=== PATIENT | male | born 1975 | race Caucasian/White ===

== ENCOUNTER 2018-10-10 14:31 | Emergency (ER) | payer OTHER ==
[~2018-10-10] VITALS: Ht 177.8 cm; Wt 87.1 kg
--- NOTE | 2018-10-10 15:00 | NUR ---
PT BIB SELF C/O SEVERE ABD PAIN X3 DAYS, REPORTS "CROH[place] FLARE-UP" WHICH HAPPENS OCCASIONALLY. PT REPORTS HIGH TOLERANCE TO PAIN MEDICATION. DENIES N/V AT THIS TIME. NO OTHER COMPLAINTS. RESP EVEN UNLABORED. IN ER BED 13.
[2018-10-10 15:16] LABS: EOSINOPHILS % (AUTO) 0.8 % (0.0-6.0); HEMATOCRIT 43 % (39-51); HEMOGLOBIN 14.7 g/dL (13.5-17.5); LYMPHOCYTES # (AUTO) 1.6 /CMM (0.8-4.8); LYMPHOCYTES % (AUTO) 35.1 % (20.0-44.0); MEAN CORPUSCULAR HGB CONC 34 g/dl (31.0-36.0); MEAN CORPUSCULAR VOLUME 96 fL (80-96); MONOCYTES # (AUTO) 0.4 /CMM (0.1-1.30); MONOCYTES % (AUTO) 8.7 % (2.0-12.0); NEUTROPHILS # (AUTO) 2.5 /CMM (1.8-8.9); NEUTROPHILS % (AUTO) 54.4 % (43.0-81.0); PLATELET COUNT (AUTO) 253 /CMM (150-450); RED BLOOD CELL COUNT(AUTO) 4.47 MIL/uL (4.5-6.0); WHITE BLOOD COUNT (AUTO) 4.6 K/uL (4.3-11.0)
[2018-10-10] MEDS ORDERED: HYDROMORPHONE 1 MG/1 ML DISP.SYRIN ONE (15:21)
[2018-10-10] MEDS ORDERED: ONDANSETRON HCL/PF 4 MG/2 ML VIAL ONE (15:21)
[2018-10-10 15:23] LABS: CREATININE 0.9 mg/dL (0.6-1.3); POTASSIUM 3.3 mmol/L (3.5-5.1)
[2018-10-10 15:28] LABS: ALBUMIN 3.4 g/dL (3.4-5.0); BILIRUBIN,DIRECT 0.1 mg/dL (0.0-0.2); BILIRUBIN,TOTAL 0.3 mg/dL (0.2-1.0); TOTAL PROTEIN, SERUM 6.6 g/dL (6.4-8.2)
[2018-10-10] MEDS ORDERED: HYDROMORPHONE INJ 2 MG/ML DISP.SYRIN IV ONE (15:30)
[2018-10-10] MEDS ORDERED: ONDANSETRON HCL/PF 4 MG/2 ML VIAL IVP ONE (15:30)
[2018-10-10] MEDS ORDERED: IV NS 0.9% 1,000 ML BAG IV ONE (15:30)
--- NOTE | 2018-10-10 16:10 | NUR ---
RESTING QUIETLY, NAD NOTED. PENDING DC UPON COMPLETION OF FLUIDS.
--- NOTE | 2018-10-10 17:10 | NUR ---
Patient discharged to home in stable condition. Written and verbal after care instructions given. Patient verbalizes understanding of instruction. IV removed. Catheter intact and site benign. Pressure and 4x4 applied to site. No bleeding noted. AMBULATORY STEADY GAIT
[2018-10-10 17:12] VITALS: BP 127/82
== END 2018-10-10 17:12 | disposition home or self-care (01) ==
LOC: ER 14:39
DX: K50.90 Crohn's disease, unspecified, without complications (principal); I10 Essential (primary) hypertension; Z85.038 Personal history of other malignant neoplasm of large intestine
CPT/HCPCS: 36415; 80048-TC; 80076-TC; 83690-TC; 85025-TC; A4606; J1170; J2405; J7030; Z7610

== ENCOUNTER 2019-04-09 19:23 | Emergency (ER) | payer SELFPAY ==
[~2019-04-09] VITALS: Ht 177.8 cm; Wt 90.7 kg
--- NOTE | 2019-04-09 19:40 | NUR ---
PT BIBSELF C/O ALCOHOL WITHDRAWAL. 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 PT AAOX4. RESPIRATIONS EVEN AND UNLABORED. SKIN WARM AND INTACT. VITAL SIGNS STABLE. NO ACUTE DISTRESS NOTED AT THIS TIME. ON CONTINUOUS FOOD AND BEVERAGE ASSOCIATE, WILL CONTINUE TO MONITOR
[2019-04-09] MEDS ORDERED: LORAZEPAM INJ 2 MG/ML VIAL ONE (19:41)
--- NOTE | 2019-04-09 19:50 | NUR ---
IV INITIATED LAC 18G. LABS DRAWN FROM SITE. AGENCY DIRECTOR AT BEDSIDE FOR COLLECTION. IV INTACT AND PATENT
[2019-04-09 19:58] LABS: BASOPHILS # (AUTO) 0.1 /CMM (0.0-0.2); BASOPHILS % (AUTO) 1.5 % (0.0-2.0); EOSINOPHILS % (AUTO) 0.4 % (0.0-6.0); HEMATOCRIT 51 % (39-51); HEMOGLOBIN 17.5 g/dL (13.5-17.5); LYMPHOCYTES # (AUTO) 1.5 /CMM (0.8-4.8); LYMPHOCYTES % (AUTO) 17.6 % (20.0-44.0); MEAN CORPUSCULAR HGB CONC 34 g/dl (31.0-36.0); MEAN CORPUSCULAR VOLUME 95 fL (80-96); MONOCYTES # (AUTO) 0.6 /CMM (0.1-1.30); MONOCYTES % (AUTO) 6.4 % (2.0-12.0); NEUTROPHILS # (AUTO) 6.4 /CMM (1.8-8.9); NEUTROPHILS % (AUTO) 74.1 % (43.0-81.0); PLATELET COUNT (AUTO) 287 /CMM (150-450); RED BLOOD CELL COUNT(AUTO) 5.36 MIL/uL (4.5-6.0); WHITE BLOOD COUNT (AUTO) 8.6 K/uL (4.3-11.0)
[2019-04-09] MEDS ORDERED: LORAZEPAM INJ 2 MG/ML VIAL IVP ONE (20:00)
[2019-04-09] MEDS ORDERED: IV NS 0.9% 1,000 ML BAG IV ONE (20:00)
[2019-04-09 20:01] LABS: CALCIUM, SERUM 8.8 mg/dL (8.5-10.1); CREATININE 1.4 mg/dL (0.6-1.3); POTASSIUM 4.2 mmol/L (3.5-5.1)
[2019-04-09 20:09] LABS: ALBUMIN 4.2 g/dL (3.4-5.0); BILIRUBIN,DIRECT 0.2 mg/dL (0.0-0.2); BILIRUBIN,TOTAL 0.6 mg/dL (0.2-1.0)
[2019-04-09 20:10] LABS: SALICYLATE 1.1 mg/dL (2.8-20.0)
--- NOTE | 2019-04-09 20:10 | NUR ---
UNABLE TO PROVIDE URINE SAMPLE AT THIS TIME.
--- NOTE | 2019-04-09 20:43 | NUR ---
PT STILL UNABLE TO PROVIDE URINE SAMPLE. MD PUENTE
[2019-04-09] MEDS ORDERED: Magnesium 1GM/D5W 100ML PREMIX PIGGYBACK IV ONE (21:00)
[2019-04-09] MEDS ORDERED: Magnesium 1GM/D5W 100ML PREMIX 100 ML IV ONE (21:15)
--- NOTE | 2019-04-10 05:30 | NUR ---
PT OK TO DISCHARGE HOME PER DR ROPER. IV removed. Catheter intact and site benign. Pressure and 4x4 applied to site. No bleeding noted.Patient discharged to home in stable condition. Written and verbal after care instructions given. Patient verbalizes understanding of instruction.Patient is awake and alert to self, day, and place. PT ambulatory with a steady gait. Pt called to take him home.
[2019-04-10 05:53] VITALS: BP 131/92
== END 2019-04-10 05:54 | disposition home or self-care (01) ==
LOC: ER 19:25
DX: F10.20 Alcohol dependence, uncomplicated (principal); E86.0 Dehydration; R00.0 Tachycardia, unspecified; I10 Essential (primary) hypertension; K50.90 Crohn's disease, unspecified, without complications; Y90.8 Blood alcohol level of 240 mg/100 ml or more; Z85.038 Personal history of other malignant neoplasm of large intestine; Z60.2 Problems related to living alone
CPT/HCPCS: 36415; 80048; 80076; 80307; 80329; 85025; 93005; 96361; 96365; 96375; 99284; G0480; J2060; J3475; J7030

== ENCOUNTER 2019-05-05 00:52 | Emergency (ER) | payer OTHER ==
[~2019-05-05] VITALS: Ht 177.8 cm; Wt 94.8 kg
[2019-05-05 01:01] VITALS: BP 124/97
== END 2019-05-05 01:39 | disposition home or self-care (01) ==
LOC: ER 00:57
DX: F10.239 Alcohol dependence with withdrawal, unspecified (principal); Y90.9 Presence of alcohol in blood, level not specified; I10 Essential (primary) hypertension; K50.90 Crohn's disease, unspecified, without complications; Z85.038 Personal history of other malignant neoplasm of large intestine; Z90.89 Acquired absence of other organs; Z98.890 Other specified postprocedural states; Z60.2 Problems related to living alone

== ENCOUNTER 2019-06-03 15:34 | Emergency (ER) | payer OTHER ==
[~2019-06-03] VITALS: Ht 167.6 cm; Wt 79.4 kg
[2019-06-03 15:43] VITALS: BP 154/99
[2019-06-03] MEDS ORDERED: LORAZEPAM 1 MG TABLET PO ONE (16:00)
[2019-06-03] MEDS ORDERED: KETOROLAC TROMETHAMINE INJ 60 MG/2 ML VIAL IM ONE (16:00)
[2019-06-03] MEDS ORDERED: KETOROLAC TROMETHAMINE INJ 30 MG/ML VIAL ONE (16:18)
[2019-06-03] MEDS ORDERED: LORAZEPAM 1 MG TABLET ONE (16:18)
== END 2019-06-03 18:00 | disposition home or self-care (01) ==
LOC: ER 15:37
DX: S53.492A Other sprain of left elbow, initial encounter (principal); S20.212A Contusion of left front wall of thorax, initial encounter; F10.229 Alcohol dependence with intoxication, unspecified; I10 Essential (primary) hypertension; Z98.890 Other specified postprocedural states; Z90.89 Acquired absence of other organs; Z85.038 Personal history of other malignant neoplasm of large intestine; Z60.2 Problems related to living alone; Y04.0XXA Assault by unarmed brawl or fight, initial encounter; Y93.89 Activity, other specified; Y92.89 Other specified places as the place of occurrence of the external cause; Y99.8 Other external cause status; Y90.9 Presence of alcohol in blood, level not specified
CPT/HCPCS: 71045; 73070; 96372; 99283; J1885

== ENCOUNTER 2019-10-01 09:46 | Emergency (ER) | payer OTHER, MEDICAID ==
[~2019-10-01] VITALS: Ht 177.8 cm; Wt 90.7 kg
--- NOTE | 2019-10-01 10:30 | NUR ---
HEADACHE AND BILATERAL SHOULDER PAIN, INJURED WHILE PLAYING SOCCER 2 DAYS AGO (WEDNESDAY). PATIENT A/OX4. BREATHING EVEN AND UNLABORED, NO SOB NOTED, NEEDS ATTENDED.
[2019-10-01] MEDS ORDERED: TRAMADOL HCL 50 MG TABLET ONE (12:25)
[2019-10-01] MEDS ORDERED: ONDANSETRON 4 MG TAB.RAPDIS ONE (12:25)
[2019-10-01] MEDS ORDERED: TRAMADOL HCL 50 MG TABLET PO ONE (12:30)
[2019-10-01] MEDS ORDERED: ONDANSETRON 4 MG TAB.RAPDIS PO ONE (12:30)
--- NOTE | 2019-10-01 14:00 | NUR ---
Patient is resting comfortably in bed with eyes closed. Easily aroused. VSS
--- NOTE | 2019-10-01 14:20 | NUR ---
Patient discharged to home in stable condition. Written and verbal after care instructions given. Patient verbalizes understanding of instruction.
[2019-10-01 14:21] VITALS: BP 110/68
== END 2019-10-01 14:22 | disposition home or self-care (01) ==
LOC: ER 09:48
DX: S09.8XXA Other specified injuries of head, initial encounter (principal); R51 Headache; M25.512 Pain in left shoulder; M25.511 Pain in right shoulder; F10.10 Alcohol abuse, uncomplicated; I10 Essential (primary) hypertension; Y90.9 Presence of alcohol in blood, level not specified; Z98.890 Other specified postprocedural states; Z60.2 Problems related to living alone; Z85.038 Personal history of other malignant neoplasm of large intestine; W18.39XA Other fall on same level, initial encounter; Y93.61 Activity, american tackle football; Y92.39 Other specified sports and athletic area as the place of occurrence of the external cause; Y99.8 Other external cause status
CPT/HCPCS: 70450; 71045; 73030; 99284; Q0162

== ENCOUNTER 2019-10-09 08:03 | Emergency (ER) | payer OTHER ==
[~2019-10-09] VITALS: Ht 177.8 cm; Wt 90.7 kg
[2019-10-09 08:08] VITALS: BP 143/101
--- NOTE | 2019-10-09 08:25 | NUR ---
PATIENT A/OX4. BREATHING EVEN AND UNLABORED, NO SOB NOTED, NEEDS ATTENDED, AMBULATORY WITH STEADY GAIT. Patient discharged to home in stable condition. Written and verbal after care instructions given. Patient verbalizes understanding of instruction.
== END 2019-10-09 08:27 | disposition home or self-care (01) ==
LOC: ER 08:10
DX: F10.239 Alcohol dependence with withdrawal, unspecified (principal); R11.2 Nausea with vomiting, unspecified; I10 Essential (primary) hypertension; Y90.9 Presence of alcohol in blood, level not specified; Z85.038 Personal history of other malignant neoplasm of large intestine; Z90.89 Acquired absence of other organs; Z98.890 Other specified postprocedural states; Z60.2 Problems related to living alone

== ENCOUNTER 2019-10-21 18:44 | Emergency (ER) | payer OTHER ==
[~2019-10-21] VITALS: Ht 177.8 cm; Wt 90.7 kg
--- NOTE | 2019-10-21 20:20 | NUR ---
RICK FROM HOME C/O ALCOHOL WITHDRAWAL. PER RA, PT STATES HE DRANK A BOTTLE OF VODKA TODAY. PT UNSURE OF TIME FOR LAST DRINK. PT C/O NAUSEA WELL. PT AAOX4. RESPIRATIONS EVEN AND UNLABORED. TACHYCARDIA NOTED, MD AWARE. AMBULATORY WITH STEADY GAIT. NO ACUTE DISTRESS NOTED AT THIS TIME. PLACED ON MONITOR, WILL CONTINUE TO MONITOR
[2019-10-21] MEDS ORDERED: CHLORDIAZEPOXIDE HCL 25 MG CAPSULE ONE (20:49)
--- NOTE | 2019-10-21 20:50 | NUR ---
DISTRICT OPERATIONS MANAGER AT BEDSIDE FOR BLOOD DRAW
[2019-10-21] MEDS ORDERED: CHLORDIAZEPOXIDE HCL 25 MG CAPSULE PO ONE (21:00)
[2019-10-21 21:15] LABS: ALBUMIN 4.3 g/dL (3.4-5.0); BILIRUBIN,DIRECT 0.3 mg/dL (0.0-0.2); BILIRUBIN,TOTAL 0.9 mg/dL (0.2-1.0); CALCIUM, SERUM 9.1 mg/dL (8.5-10.1); CREATININE 1.3 mg/dL (0.6-1.3); POTASSIUM 3.9 mmol/L (3.5-5.1); TOTAL PROTEIN, SERUM 7.9 g/dL (6.4-8.2)
[2019-10-21 21:30] LABS: BASOPHILS # (AUTO) 0.1 /CMM (0.0-0.2); BASOPHILS % (AUTO) 1.2 % (0.0-2.0); HEMATOCRIT 52 % (39-51); HEMOGLOBIN 17.6 g/dL (13.5-17.5); LYMPHOCYTES # (AUTO) 1.6 /CMM (0.8-4.8); LYMPHOCYTES % (AUTO) 16.4 % (20.0-44.0); MEAN CORPUSCULAR HGB CONC 34 g/dl (31.0-36.0); MEAN CORPUSCULAR VOLUME 96 fL (80-96); MONOCYTES # (AUTO) 0.7 /CMM (0.1-1.30); MONOCYTES % (AUTO) 6.7 % (2.0-12.0); NEUTROPHILS # (AUTO) 7.5 /CMM (1.8-8.9); NEUTROPHILS % (AUTO) 75.7 % (43.0-81.0); PLATELET COUNT (AUTO) 353 /CMM (150-450); RED BLOOD CELL COUNT(AUTO) 5.43 MIL/uL (4.5-6.0); WHITE BLOOD COUNT (AUTO) 9.9 K/uL (4.3-11.0)
--- NOTE | 2019-10-21 21:55 | NUR ---
PER DR. MADDOX, PT MEDICALLY CLEARED FOR DISCHARGE. PT AAOX4. AMBULATORY WITH STEADY GAIT. VITAL SIGNS STABLE. Patient discharged to home in stable condition. Written and verbal after care instructions given. Patient verbalizes understanding of instruction.
[2019-10-21 21:59] VITALS: BP 137/84
== END 2019-10-21 22:00 | disposition home or self-care (01) ==
LOC: ER 18:44
DX: F10.239 Alcohol dependence with withdrawal, unspecified (principal); I10 Essential (primary) hypertension; F12.90 Cannabis use, unspecified, uncomplicated; Z98.890 Other specified postprocedural states; Z85.038 Personal history of other malignant neoplasm of large intestine; Z60.2 Problems related to living alone; Y90.8 Blood alcohol level of 240 mg/100 ml or more
CPT/HCPCS: 36415; 80048-TC; 80076-TC; 85025-TC; G0480

== ENCOUNTER 2020-03-17 15:51 | Emergency (ER) | payer OTHER ==
[~2020-03-17] VITALS: Ht 177.8 cm; Wt 86.2 kg
--- NOTE | 2020-03-17 15:54 | NUR ---
PT BIB SELF C/O ALCOHOL WITHDRAWAL AND L EYE BRUISE, PT IS AAOX4, NOT IN RESPIRATORY DISTRESS, HOOKED TO BENCH ASSEMBLY INSPECTOR, KEPT RESTED AND COMFORTABLE, WILL CONTINUE TO MONITOR.
--- NOTE | 2020-03-17 16:08 | NUR ---
PT SEEN AND EXAMINED BY .
--- NOTE | 2020-03-17 16:15 | NUR ---
ER PHLEB AT BEDSIDE FOR BLOOD DRAW.
[2020-03-17] MEDS ORDERED: FOLIC ACID 1 MG TABLET ONE (16:16)
[2020-03-17] MEDS ORDERED: THIAMINE HCL 100 MG TABLET ONE (16:16)
[2020-03-17] MEDS ORDERED: ONDANSETRON 4 MG TAB.RAPDIS ONE (16:17)
[2020-03-17] MEDS ORDERED: ONDANSETRON 4 MG TAB.RAPDIS SL ONE (16:30)
[2020-03-17] MEDS ORDERED: FOLIC ACID 1 MG TABLET PO ONE (16:30)
[2020-03-17] MEDS ORDERED: THIAMINE HCL 100 MG TABLET PO ONE (16:30)
[2020-03-17 16:32] LABS: HEMATOCRIT 46 % (39-51)
--- NOTE | 2020-03-17 16:33 | NUR ---
supply chain technician @ bedside able to obtained blood draw straight draw ,patient follows command @ this time
[2020-03-17 16:35] LABS: BASOPHILS # (AUTO) 0.1 /CMM (0.0-0.2); BASOPHILS % (AUTO) 1.1 % (0.0-2.0); EOSINOPHILS % (AUTO) 0.7 % (0.0-6.0); HEMOGLOBIN 15.5 g/dL (13.5-17.5); LYMPHOCYTES # (AUTO) 1.7 /CMM (0.8-4.8); LYMPHOCYTES % (AUTO) 28.8 % (20.0-44.0); MEAN CORPUSCULAR HGB CONC 34 g/dl (31.0-36.0); MEAN CORPUSCULAR VOLUME 97 fL (80-96); MONOCYTES # (AUTO) 0.6 /CMM (0.1-1.30); MONOCYTES % (AUTO) 10.2 % (2.0-12.0); NEUTROPHILS # (AUTO) 3.6 /CMM (1.8-8.9); NEUTROPHILS % (AUTO) 59.2 % (43.0-81.0); PLATELET COUNT (AUTO) 268 /CMM (150-450); RED BLOOD CELL COUNT(AUTO) 4.68 MIL/uL (4.5-6.0); WHITE BLOOD COUNT (AUTO) 6.1 K/uL (4.3-11.0)
[2020-03-17 16:40] LABS: CALCIUM, SERUM 8.7 mg/dL (8.5-10.1); CREATININE 1.2 mg/dL (0.6-1.3); POTASSIUM 3.5 mmol/L (3.5-5.1)
[2020-03-17 16:47] LABS: ALBUMIN 4.1 g/dL (3.4-5.0); BILIRUBIN,DIRECT 0.2 mg/dL (0.0-0.2); BILIRUBIN,TOTAL 0.6 mg/dL (0.2-1.0); TOTAL PROTEIN, SERUM 7.5 g/dL (6.4-8.2)
--- NOTE | 2020-03-17 16:47 | NUR ---
PT IS BACK FROM THE CT SCAN.
[2020-03-17 16:48] LABS: SALICYLATE 0.6 mg/dL (2.8-20.0)
--- NOTE | 2020-03-17 17:43 | NUR ---
Patient eyes close arousable ,non distress refused to use bathroom @ this time made aware for UA test awaiting urinal @ bedside he stated will use urinal .
--- NOTE | 2020-03-17 17:55 | NUR ---
Patient standing @ bedside urine obtained and send to lab
[2020-03-17 18:06] LABS: APPEARANCE,URINE Clear (CLEAR); BILIRUBIN,URINE Negative (NEGATIVE); BLOOD, URINE Negative Ery/uL (NEGATIVE); COLOR,URINE Yellow (YELLOW); KETONES,URINE Trace (NEGATIVE); LEUKOCYTE ESTERASE ,URINE Negative (NEGATIVE); NITRITE, URINE Negative (NEGATIVE); PH,URINE 5.5 (5.0-8.0); PROTEIN,URINE 100 mg/dl (NEGATIVE); UGLUCOSE Negative (NEGATIVE); UROBILINOGEN,URINE 0.2 EU/dL (0.2)
--- NOTE | 2020-03-17 18:49 | NUR ---
PT ASLEEP ON BED EASILY AROUSABLE, NOT IN RESPIRATORY DISTRESS, V/S STABLE, KEPT RESTED AND COMFORTABLE, WILL CONTINUE TO MONITOR.
[2020-03-17 18:58] LABS: BACTERIA,URINE Few /HPF (None Seen); RBC,URINE 0-2 /HPF (0-2); SQUAMOUS EPITHELIAL CELL,UR Few /HPF (None Seen); WBC,URINE 0-2 /HPF (0-3)
[2020-03-17 18:59] LABS: MUCUS,URINE Few /LPF (None Seen)
--- NOTE | 2020-03-17 19:04 | NUR ---
Transfer care report to Danisha Wisdom
--- NOTE | 2020-03-17 19:10 | NUR ---
REPORT RECEIVED FROM DMITRIY GARRIDO RN
[2020-03-17] MEDS ORDERED: TDAP [DIPH/PERTUSSIS/TET] 0.5 ML VIAL IM ONE ×2 (21:00→21:29)
--- NOTE | 2020-03-17 21:36 | NUR ---
PT ALERT AND AWAKE. RESTING AT BEDSIDE COMFORTABLY. NO ACUTE DISTRESS NOTED. WILL CONTINUE TO MONITOR
--- NOTE | 2020-03-18 02:48 | NUR ---
PT ASLEEP. VSS. NO ACUTE DISTRESS NOTED. SITTER AT BEDSIDE FOR SAFETY. FALL PRECAUTIONS IN PLACE. CALL LIGHT WITHIN REACH,
--- NOTE | 2020-03-18 03:53 | NUR ---
PT PASS ROAD TEST, STEADY GAIT, DR. BROWN AWARE
[2020-03-18 04:01] VITALS: BP 141/68
--- NOTE | 2020-03-18 04:02 | NUR ---
PT CLEARED FOR DISCHARGE PER DR. BROWN. PT AOX4 STEADY GAIT. IV REMOVED. IV CATHETER INTACT. PRESSURE GAUZE APPLIED. NO ACTIVE BLEEDING NOTED. PT AMBULATORY WITH STEADY GAIT.
== END 2020-03-18 04:03 | disposition home or self-care (01) ==
LOC: ER 15:55
DX: S02.2XXA Fracture of nasal bones, initial encounter for closed fracture (principal); S05.12XA Contusion of eyeball and orbital tissues, left eye, initial encounter; S09.8XXA Other specified injuries of head, initial encounter; F10.129 Alcohol abuse with intoxication, unspecified; F11.10 Opioid abuse, uncomplicated; F13.10 Sedative, hypnotic or anxiolytic abuse, uncomplicated; F12.10 Cannabis abuse, uncomplicated; E87.2 Acidosis; K70.9 Alcoholic liver disease, unspecified; R51 Headache; R00.0 Tachycardia, unspecified; I10 Essential (primary) hypertension; K50.90 Crohn's disease, unspecified, without complications; Y90.8 Blood alcohol level of 240 mg/100 ml or more; Z60.2 Problems related to living alone; Z85.038 Personal history of other malignant neoplasm of large intestine; Z98.890 Other specified postprocedural states; Y08.89XA Assault by other specified means, initial encounter; Y93.89 Activity, other specified; Y92.89 Other specified places as the place of occurrence of the external cause; Y99.8 Other external cause status
CPT/HCPCS: 36415; 70450; 80048; 80076; 80305; 80307 ×2; 80329; 81001; 85025; 90471; 90715; 99285; G0480; Q0162; 81000-TC

== ENCOUNTER 2020-09-12 00:56 | Emergency (ER) | payer OTHER ==
[~2020-09-12] VITALS: Ht 152.4 cm; Wt 88.5 kg
--- NOTE | 2020-09-12 01:10 | NUR ---
BIBS FOR C/O N/V/D, CP ON DEEP BREATH, ON AND OFF CP, COUGH AND H/A X 1 WK. REC'D MOTRIN AT 1500. PT ALSO REPORTED NEW LOSS OF TASTE AND SMELL. WAS SEEN AT [facility] A FEW DAYS AGO , GIVEN TORADOL AND ZOFRAN SHOT BUT NO COVID TEST WAS DONE. PT REPORTED HE'S BEEN IN CLOSE CONTACT W/ SOMEONE W/ COVID RECENTLY. AMBULATORY TO BED 5, PLACED ON MONITOR AND ISOLATION PRECAUTION. WILL CONT TO MONTIOR ,
[2020-09-12] MEDS ORDERED: ONDANSETRON HCL/PF 4 MG/2 ML VIAL ONE (01:28)
[2020-09-12] MEDS ORDERED: ONDANSETRON HCL/PF 4 MG/2 ML VIAL IVP ONE (01:30)
[2020-09-12] MEDS ORDERED: IV NS 0.9% 1,000 ML BAG IV ONE (01:30)
[2020-09-12 01:34] LABS: BASOPHILS # (AUTO) 0.1 /CMM (0.0-0.2); BASOPHILS % (AUTO) 1.1 % (0.0-2.0); EOSINOPHILS % (AUTO) 1.4 % (0.0-6.0); HEMATOCRIT 40 % (39-51); HEMOGLOBIN 13.5 g/dL (13.5-17.5); LYMPHOCYTES # (AUTO) 1.3 /CMM (0.8-4.8); LYMPHOCYTES % (AUTO) 19.9 % (20.0-44.0); MEAN CORPUSCULAR HGB CONC 34 g/dl (31.0-36.0); MEAN CORPUSCULAR VOLUME 96 fL (80-96); MONOCYTES # (AUTO) 0.5 /CMM (0.1-1.30); MONOCYTES % (AUTO) 7.4 % (2.0-12.0); NEUTROPHILS # (AUTO) 4.7 /CMM (1.8-8.9); NEUTROPHILS % (AUTO) 70.2 % (43.0-81.0); PLATELET COUNT (AUTO) 338 /CMM (150-450); RED BLOOD CELL COUNT(AUTO) 4.17 MIL/uL (4.5-6.0); WHITE BLOOD COUNT (AUTO) 6.6 K/uL (4.3-11.0)
[2020-09-12 01:40] LABS: CALCIUM, SERUM 8.9 mg/dL (8.5-10.1); CREATININE 1.1 mg/dL (0.6-1.3); POTASSIUM 3.3 mmol/L (3.5-5.1)
--- NOTE | 2020-09-12 01:40 | NUR ---
X RAY AT BED SIDE
[2020-09-12 01:47] LABS: ALBUMIN 3.7 g/dL (3.4-5.0); BILIRUBIN,DIRECT 0.1 mg/dL (0.0-0.2); BILIRUBIN,TOTAL 0.3 mg/dL (0.2-1.0); TOTAL PROTEIN, SERUM 7.1 g/dL (6.4-8.2)
--- NOTE | 2020-09-12 02:49 | NUR ---
pt is medically stable for d/c per MD. IV removed. Catheter intact and site benign. Pressure and 4x4 applied to site. No bleeding noted.Patient discharged to home in stable condition. Rx and Written and verbal after care instructions given. Patient verbalizes understanding of instruction.
[2020-09-12 02:52] VITALS: BP 141/98
== END 2020-09-12 02:52 | disposition home or self-care (01) ==
LOC: ER 00:56
DX: B34.9 Viral infection, unspecified (principal); I10 Essential (primary) hypertension; F43.10 Post-traumatic stress disorder, unspecified; Z98.890 Other specified postprocedural states; Z90.89 Acquired absence of other organs
CPT/HCPCS: 36415; 71045; 80048; 80076; 85025; 96361; 96374; 99284; J2405; J7030